=== PATIENT | female | born 2000 | race African-American/Black ===

== ENCOUNTER 2023-08-29 13:02 | Emergency (ER) | payer OTHER, SELFPAY ==
--- NOTE | ~2023-08-29 | XR_ITS ---
EXAMINATION: XR chest 2V Exam Date/Time: 08/29/2023 14:47 ELEMENT BURNER HISTORY: cough, fever, sob, back pain Comparison: None. RESULT: Lines, tubes, and devices: None. Lungs and pleura: Clear. Cardiomediastinal silhouette: Normal. Other: No acute osseous or upper abdominal finding. IMPRESSION: No acute cardiopulmonary process. Reviewed, dictated and finalized at location K. [facility]
[2023-08-29 13:03] VITALS: BP 121/68; PULSE 100; RESP 16; TEMP 37.8; O2SAT 97
--- NOTE | 2023-08-29 14:48 | ED.NAVMDI ---
HPI - Nausea/Vomiting/Diarrhea General Chief complaint: Nausea/Vomiting/Diarrhea Stated complaint: back pain, ESCUDERO, n/v Time Seen by Provider: 08/29/23 14:02 Source: patient Mode of arrival: ambulatory Limitations: no limitations History of Present Illness HPI Narrative: Olive is a 23-year-old female patient presenting to the ER today with complaints of back pain, headache, nausea, mild shortness of breath, and cough that started yesterday. States highest fever was 101. Related Data Allergies Allergy/AdvReac Type Severity Reaction Status Date / Time No Known Allergies Allergy Verified 08/29/23 13:49 Review of Systems Review of Systems: Pertinent positives per HPI. Patient denies any rash, headache, visual changes, dizziness, sore throat, chest pain, palpitations, nausea, vomiting, diarrhea, constipation, abdominal pain, or any urinary issues. PMFSH Comments At the time of my signature, I reviewed and agree with the nursing past medical, surgical, social, and family history. There is no relevant family history pertinent to the patient complaint. Exam Narrative: General: Well-developed, obese, in no apparent distress Head: Normocephalic, atraumatic Eyes: Pupils equally round and reactive to light bilaterally, EOM intact, sclera and conjunctive clear, no discharge, lids normal Ears: TMs intact and clear, ear canals clear, no drainage, grossly hearing normal. Nose: Nares patent, no discharge, no inflammation, no sinus tenderness. Mouth: Oropharynx without lesions or masses, good dentition, MMM. Neck: Supple, trachea midline, no enlargement of anterior or posterior cervical nodes, no thyroid masses or goiter palpable. Cardio: Regular rate and rhythm, s1 and s2 normal, no murmur appreciated. Resp: Clear to auscultation bilaterally anteriorly and posteriorly, no rhonchi, rales, wheezing or rubs Course Course Emergency Course: Portions of this record may have been created with voice recognition software. Vital Signs Vital signs: Vital Signs Temperature 37.8 C H 08/29/23 13:03 Pulse Rate 100 08/29/23 13:03 Respiratory Rate 16 08/29/23 13:03 Blood Pressure 121/68 08/29/23 13:03 Pulse Oximetry 97 08/29/23 13:03 Oxygen Delivery Room Air 08/29/23 13:03 Temperature 37.8 C H 08/29/23 13:03 Pulse Rate 100 08/29/23 13:03 Respiratory Rate 16 08/29/23 13:03 Blood Pressure 121/68 08/29/23 13:03 Pulse Oximetry 97 08/29/23 13:03 Oxygen Delivery Room Air 08/29/23 13:03 Vital signs reviewed MDM - Nausea/Vomiting/Diarrhea MDM Narrative Medical decision making narrative: At the time of visit patient is resting comfortably on the exam table. Patient appears to be nontoxic. Chest x-ray was performed and is negative for any sign of pneumonia. COVID, flu, RSV testing was performed. Patient is positive for COVID. RSV and flu testing was negative. Supportive measures were discussed with the patient and they voiced understanding discharge instructions and agrees to treatment plan. Return precautions reviewed Differential Diagnosis Differential diagnosis: Likely other (COVID, influenza, RSV, viral syndrome, strep pharyngitis, gastroenteritis) Lab Data Labs: Lab Results 08/29/23 Range/Units 15:00 Influenza A (RT-PCR) Negative (Negative) Influenza B (RT-PCR) Negative (Negative) RSV (RT-PCR) Negative (Negative) SARS-CoV-2 RNA (RT-PCR) Positive A (Negative) Discharge Plan Discharge Clinical Impression: COVID-19 Patient Disposition: Home, Self-Care Condition: Stable Instructions: Antibiotic Form, COVID-19 (Coronavirus Disease 2019) (ED), How to Recover from COVID-19 at Home (ED) Additional Instructions: COVID testing is positive in the ER today. Chest x-rays negative for any sign of pneumonia May take DayQuil/NyQuil for cold/flu symptoms. Increase fluids and stay well hydrated Tylenol/motrin for pain/fever Flonase and
[2023-08-29 15:00] VITALS: BP 132/76; PULSE 98; RESP 20; O2SAT 100
[2023-08-29 15:40] LABS: Influenza A QL RT-PCR Negative (Negative); Influenza B QL RT-PCR Negative (Negative); RSV RNA, RT-PCR Negative (Negative); SARS-CoV-2 RNA PCR Positive (Negative)
[2023-08-29] MEDS: ACETAMINOPHEN 500 MG TABLET 1000 MG PO (16:05)
[2023-08-29 16:29] VITALS: BP 129/72; PULSE 89; RESP 20; O2SAT 100
== END 2023-08-29 16:32 | disposition home or self-care (01) ==
PROVIDERS: Emergency Provider Nurse Practitioner Family
DX: U07.1 COVID-19 (principal)
CPT/HCPCS: 71046; 87637; 99283; A9270

== ENCOUNTER 2024-01-11 13:42 | Emergency (ER) | payer BC, SELFPAY ==
--- NOTE | ~2024-01-11 | CT_ITS ---
EXAMINATION: CT abdomen pelvis w con DATE: 01/11/2024 16:34 INDICATION: Left lower quadrant abdominal pain. TECHNIQUE: Computed tomography (CT) of the abdomen and pelvis was performed with 100 mL Omnipaque 350 intravenous contrast. Automated exposure control and iterative reconstruction technique were employe d. The dose-length product was 293.37 mGy-cm. COMPARISON: None. FINDINGS: The visualized portions of the lung bases are clear without pneumonia or pleural effusion. The heart size is normal. No pericardial effusion. The liver, gallbladder, spleen, pancreas, adrenal glands, and kidneys are normal. There are no dilated loops of bowel. The appendix is normal. There is a 2.9 cm dominant follicle in left ovary. There is physiologic fluid in the pelvis. There is a 3.8 c m mass in right adnexa, likely a uterine fibroid. There are no pathologically enlarged lymph nodes. T here is levocurvature of thoracolumbar spine. IMPRESSION: 1. Uterine fibroid. Reviewed, dictated and finalized at location E. IMPRESSION: 1. Uterine fibroid.
[2024-01-11 13:50] VITALS: BP 120/64; PULSE 71; RESP 15; TEMP 36.5; O2SAT 100
[2024-01-11 15:32] VITALS: BP 116/63; BP 117/72; PULSE 63; PULSE 66; RESP 16; O2SAT 100
[2024-01-11] MEDS: SODIUM CHLORIDE 0.9% IV 1,000 ML 999 ML IV CONT (15:32)
[2024-01-11] MEDS: ONDANSETRON INJ 4 MG/2 ML VIAL IV PUSH (15:32)
[2024-01-11 15:35] VITALS: BP 108/65; PULSE 64
[2024-01-11 15:36] VITALS: BP 116/68; PULSE 64
[2024-01-11 15:36] LABS: Basophils Percent Auto 0.3 % (0.2-1.2); Eosinophils Percent Auto 0.4 % (0-4.4); Hematocrit 38.3 % (37.0-47.0); Hemoglobin 12.2 g/dL (12.0-15.0); Immature Granulocyte Absolute 0.02 K/mm3 (0.00-0.031); Immature Granulocyte Percent A 0.3 % (0-0.5); Lymphocytes Absolute Auto 1.08 K/mm3 (0.9-3.2); Lymphocytes Percent Auto 15.2 % (18.3-44.2); Mean Corpuscular HGB Conc 31.9 g/dl (32-36); Mean Corpuscular Hemoglobin 29.8 pg (26-34); Mean Corpuscular Volume 93.4 fl (80-100); Mean Platelet Volume 9.6 fl (7.4-10.4); Monocytes Absolute Auto 0.6 K/mm3 (0.1-0.6); Neutrophils Absolute Auto 5.4 K/mm3 (1.3-6.7); Neutrophils Percent Auto 75.8 % (45.5-73.1); Platelet Count Result 275 k/mm3 (150-375); Red Cell Distribution Width 13.2 % (11.5-14.5); White Blood Count 7.1 K/mm3 (4.5-10.0)
--- NOTE | 2024-01-11 15:38 | ED.NAVMDI ---
HPI - Nausea/Vomiting/Diarrhea General Chief complaint: Nausea/Vomiting/Diarrhea Stated complaint: N/V Time Seen by Provider: 01/11/24 14:25 History of Present Illness HPI Narrative: Patient is a 23-year-old female who presents ER with nausea vomiting and possible syncope. Reports she is on the phone with her boss trying to get off work. He is worried that she did sound right. She felt vomit come into her mouth and she sat down. Then the paramedics showed up at her home. Reports she has been having vomiting for couple of days. She does not believe that she is . No diarrhea. She has some mild diffuse abdominal cramping that is worse on left side. No chest pain or chest pressure. Has history of untreated seizure disorder but this seems different. Related Data Allergies Allergy/AdvReac Type Severity Reaction Status Date / Time No Known Allergies Allergy Verified 08/29/23 13:49 Review of Systems Review of Systems: All systems reviewed & are unremarkable except as noted in HPI and below Constitutional: Constitutional: Reports no additional constitutional complaints ENT: Reports system reviewed and no additional complaints, except as documented Cardiovascular: Cardiovascular: Reports no additional cardiovascular complaints Respiratory: Respiratory: Reports no additional respiratory complaints Gastrointestinal: Gastrointestinal: Reports abdominal pain, Denies diarrhea, Reports nausea and Reports vomiting Genitourinary: Genitourinary: Reports no additional female genitourinary complaints Neurologic: Reports syncope, Denies focal weakness and Denies numbness PMFSH Past Medical History Medical History (Updated 01/11/24 @ 18:21 by Dallas Chung MD) Seizures Surgical History Surgical History (Updated 01/11/24 @ 15:40 by Dallas Chung MD) No pertinent past surgical history Exam Narrative: GENERAL: Well-appearing, well-nourished, and in no acute distress. HEAD: Normocephalic, atraumatic. ENT: Mucous membranes moist. NECK: Supple. CHEST: Clear to auscultation. No respiratory distress. HEART: Regular rate and rhythm. Normal peripheral pulses. ABDOMEN: Soft, tender palpation left mid and lower quadrant greater than right., nondistended. EXTREMITIES: Normal range of motion. No edema. SKIN: Warm, dry, no rash. NEURO: Alert and oriented x3. PSYCH: Normal mood and affect. Course Course Emergency Course: Patient resting comfortably. Informed of results. Improved with fluids and antiemetics. Will start on antibiotic for possible UTI. Discharge. Vital Signs Vital signs: Vital Signs Temperature 97.7 F 01/11/24 13:50 Pulse Rate 71 01/11/24 13:50 Respiratory Rate 15 01/11/24 13:50 Blood Pressure 120/64 01/11/24 13:50 Pulse Oximetry 100 01/11/24 13:50 Oxygen Delivery Room Air 01/11/24 13:50 Temperature 97.7 F 01/11/24 13:50 Pulse Rate 88 01/11/24 18:49 Respiratory Rate 16 01/11/24 18:49 Blood Pressure 117/88 01/11/24 18:49 Pulse Oximetry 98 01/11/24 18:49 Oxygen Delivery Room Air 01/11/24 13:50 MDM - Nausea/Vomiting/Diarrhea Lab Data 01/11/24 15:27 01/11/24 15:27 Labs: Lab Results 01/11/24 01/11/24 Range/Units 15:27 15:46 WBC 7.1 (4.5-10.0) K/mm3 RBC 4.10 L (4.2-5.4) M/mm3 Hgb 12.2 (12.0-15.0) g/dL Hct 38.3 (37.0-47.0) % MCV 93.4 (80-100) fl MCH 29.8 (26-34) pg MCHC 31.9 L (32-36) g/dl RDW 13.2 (11.5-14.5) % Plt Count 275 (150-375) k/mm3 MPV 9.6 (7.4-10.4) fl Immature Gran % (Auto) 0.3 (0-0.5) % Neut % (Auto) 75.8 H (45.5-73.1) % Lymph % (Auto) 15.2 L (18.3-44.2) % Garvin % (Auto) 8.0 (2.6-8.5) % Eos % (Auto) 0.4 (0-4.4) % Baso % (Auto) 0.3 (0.2-1.2) % Lymph # (Auto) 1.08 (0.9-3.2) K/mm3 Garvin # (Auto) 0.6 (0.1-0.6) K/mm3 Eos # (Auto) 0.0 (0-0.3) K/mm3 Baso # (Auto) 0.0 (0.0-0.1) K/mm3 Abs Immat Gran (au
[2024-01-11 15:49] LABS: Alanine Aminotransferase 10 U/L (6-35); Albumin Level 4.5 g/dL (3.5-5.1); Alkaline Phosphatase 48 U/L (38-126); Anion Gap 7 mmol/L (4-12); Aspartate Amino Transferase 20 U/L (14-36); Bilirubin,Total 0.9 mg/dL (0.2-1.3); Blood Urea Nitrogen 6 mg/dL (7-17); Calcium 9.1 mg/dL (8.4-10.2); Carbon Dioxide 24 mmol/L (22-30); Chloride 108 mmol/L (98-107); Estimated CRCL calculation 102 ml/min; Estimated Glomerular Filt Rate > 60; Glucose 81 mg/dL (65-110); Lipase 56 U/L (23-300); Sodium 139 mmol/L (137-145)
[2024-01-11 16:06] LABS: Add Urine Microscopic? YES; Appearance Urine Cloudy (Clear); Bacteria Urine 1+ /hpf; Bilirubin Urine Negative (Negative); Blood Urine 3+ (Negative); Color Urine Yellow (Yellow); Glucose Urine UA Negative (Negative); Ketones Urine Negative (Negative); Leukocyte Esterase Ur Trace LEU/UL (Negative); Nitrate Urine Negative (Negative); Non Pathogenic Casts 0-2; Protein Urine Trace mg/dL (Negative); Squamous Epithelial Cell Urine Few /hpf (Few)
[2024-01-11 18:49] VITALS: BP 117/88; PULSE 88; RESP 16; O2SAT 98
== END 2024-01-11 18:51 | disposition home or self-care (01) ==
PROVIDERS: Emergency Provider Emergency Medicine
DX: N39.0 Urinary tract infection, site not specified (principal)
CPT/HCPCS: 36415; 74177; 80053; 81001; 81025; 83690; 85025; 87086; 87088; 96361; 96374; 99284; J2405; J7030; Q9967